=== PATIENT | female | born 1975 | race African-American/Black ===

== ENCOUNTER 2016-09-04 07:53 | Emergency (ER) | payer BC ==
[~2016-09-04] VITALS: Ht 165.1 cm; Wt 74.7 kg
[~2016-09-04 07:53] MED LIST: 12 HOUR DECONG120 M1 PO; AFRIN,GENASAL D15 ML BOTH NARES; CIPRO500 MG PO; FISH OIL300 MG PO; FLEXERIL10 MG PO; MULTIVITAMIN1 EAC1 PO; NAPROSYN500 MG PO; NAPROXEN500 MG PO; PROTONIX40 MG PO; ZOCOR10 M1 PO; ZOCOR20 MG PO; ZOFRAN4 MG PO
[2016-09-04] MEDS ORDERED: ERYTHROMYC1 APPLICAT LEFT EYE (08:38)
[2016-09-04] MEDS ORDERED: NAPROSYN500 MG PO (08:38)
[2016-09-04 08:50] VITALS: BP 151/82
== END 2016-09-04 09:00 | disposition home or self-care (01) ==
LOC: EME 07:53
DX: H10.9 Unspecified conjunctivitis (principal); Z88.8 Allergy status to other drugs, medicaments and biological substances
CPT/HCPCS: 99281; 99284

== ENCOUNTER 2016-09-19 18:08 | Emergency (ER) | payer OTHER, BC ==
[~2016-09-19] VITALS: Ht 162.6 cm; Wt 70.5 kg
[~2016-09-19 18:08] MED LIST changes: +ERYTHROMYC1 APPLICAT LEFT EYE
[2016-09-19] MEDS ORDERED: MOTRIN600 MG PO (20:33)
[2016-09-19] MEDS ORDERED: LIORESAL10 MG PO (20:33)
[2016-09-19 21:07] VITALS: BP 111/58
== END 2016-09-19 21:31 | disposition home or self-care (01) ==
LOC: EME 18:08
DX: S16.1XXA Strain of muscle, fascia and tendon at neck level, initial encounter (principal); V49.40XA Driver injured in collision with unspecified motor vehicles in traffic accident, initial encounter; E78.5 Hyperlipidemia, unspecified
CPT/HCPCS: 70450; 72125; 99281; 99284

== ENCOUNTER 2017-01-29 13:54 | Emergency (ER) | payer OTHER ==
[~2017-01-29] VITALS: Ht 165.1 cm; Wt 72.4 kg
[~2017-01-29 13:54] MED LIST changes: +LIORESAL10 MG PO; +MOTRIN600 MG PO
[2017-01-29 14:51] LABS: HEMATOCRIT 40.4 % (36.0-46.0); MCH 32.1 PG (29.0-34.0); MCHC 33.9 G/DL (30.0-36.0); MCV 94.6 FL (83-99); MEAN PLAT.VOLUME 9.5 uM^3 (9.5-12.4); PLATELET COUNT 296 K/uL (156-360); RBC DIS.WIDTH-CV 12.7 % (11.8-14.6); RBC DIS.WIDTH-SD 44.1 % (39-53); RED BLOOD COUNT 4.27 M/uL (3.80-5.20)
[2017-01-29 15:12] LABS: CHLORIDE 104 mEq/L (99-109); QUANTITATIVE HCG < 4.0 MIU/ML; SODIUM 136 mEq/L (136-147)
[2017-01-29 15:14] LABS: GLUCOSE 105 mg/dL (70-99)
[2017-01-29 15:15] LABS: ANION GAP 8 MEQ/L (2-14)
[2017-01-29 15:16] LABS: TOTAL BILIRUBIN 0.7 mg/dL (0.0-1.0)
[2017-01-29 15:17] LABS: ALKALINE PHOSPHATASE 77 IU/L (3-129)
[2017-01-29 15:18] LABS: GFR ESTIMATE (CALCULATED) > 59 mL/min/
[2017-01-29 15:19] LABS: UREA NITROGEN (BUN) 11 mg/dL (9-23)
[2017-01-29 15:30] LABS: ADD MIUA? YES; BILIRUBIN NEGATIVE; BLOOD MODERATE; COLOR YELLOW ((YELLOW)); GLUCOSE (STRIP) NEGATIVE; KETONES NEGATIVE; LEUKOCYTES LARGE; NITRITE NEGATIVE; PROTEIN (STRIP) NEGATIVE; SPECIFIC GRAVITY 1.012 (1.000-1.030); UROBILINOGEN 0.2 MG/DL (0.2-1.0)
[2017-01-29 15:34] LABS: BACTERIA RARE /HPF; EPITHELIAL CELLS 1+ /HPF; MUCUS TRACE /LPF; RED BLOOD CELLS 15-20 /HPF (0-5); UCUL ADDED? NO
[2017-01-29] MEDS ORDERED: PYRIDIUM200 MG PO (17:54)
[2017-01-29] MEDS ORDERED: KEFLEX500 MG PO (17:54)
[2017-01-29 18:10] VITALS: BP 120/67
== END 2017-01-29 18:11 | disposition home or self-care (01) ==
LOC: EME 13:54
DX: N39.0 Urinary tract infection, site not specified (principal); R10.2 Pelvic and perineal pain; Z87.440 Personal history of urinary (tract) infections; E78.5 Hyperlipidemia, unspecified; J45.909 Unspecified asthma, uncomplicated
CPT/HCPCS: 76856; 80053; 81003; 84702; 85027; 99281; 99284; J1885